=== PATIENT | male | born 1980 | race African-American/Black ===

== ENCOUNTER 2018-02-02 21:15 | Emergency (ER) | payer MEDICAID, OTHER ==
[~2018-02-02] VITALS: Ht 170.2 cm; Wt 63.5 kg
[2018-02-02 21:24] VITALS: BP 113/78
[2018-02-02] MEDS ORDERED: CLINDAMYCIN 900MG IV 50 ML IV ONE (22:45)
[2018-02-02] MEDS ORDERED: KETOROLAC TROMETH 30 MG/ML 1ML VIAL IV ONE (22:45)
[2018-02-02 23:08] LABS: Basophils # (auto) 0.1 uL; Basophils % (auto) 0.6 % (0.0-2.0); Eosinophils # (auto) 0.1 uL; Hematocrit 43.3 % (41.0-53.0); Hemoglobin 14.5 g/dL (13.5-17.5); Lymphocytes % (auto) 9.9 % (10.0-50.0); Mean Corpuscular Hemoglobin 30.9 pg (28.0-32.0); Mean Corpuscular Hgb Conc. 33.4 g/dL (32.0-36.0); Mean Corpuscular Volume 92.5 fL (80.0-100.0); Monocytes # (auto) 0.9 uL; Monocytes % (auto) 8.4 % (0.0-12.0); Neutrophils # (auto) 8.4 uL; Neutrophils % (auto) 80.1 % (37.0-80.0); Platelet Count (auto) 235 10^3/uL (140-450); Red Blood Cells 4.68 10^6/uL (4.5-5.90); Red Cell Distribution Width 14.1 % (11.8-14.3); White Blood Cell 10.5 10^3/uL (4.4-10.8)
[2018-02-02 23:32] LABS: Albumin 3.9 g/dL (3.4-5.0); BUN/Creatinine Ratio 16.5; Bilirubin, Total 0.6 mg/dL (0.2-1.0); CRP High Sensitivity 1.08 mg/dL (< 0.3); Calcium 8.7 mg/dL (8.5-10.1); Potassium 4.2 mmol/L (3.5-5.1); Total Protein 8.5 g/dL (6.4-8.2)
== END 2018-02-03 01:40 | disposition home or self-care (01) ==
LOC: EDBD 21:15 → ER 21:21
DX: L03.115 Cellulitis of right lower limb (principal)
CPT/HCPCS: 36415; 73562; 80053; 85025; 86141; 87040; 96365; 96366; 96375; 99285; J1885; J3490